=== PATIENT | female | born 1930 | race Caucasian/White ===

== ENCOUNTER 2017-08-16 21:23 | Inpatient (IN) | payer OTHER, MEDICARE ==
[~2017-08-16] VITALS: Ht 154.9 cm; Wt 68.1 kg
[~2017-08-16 21:23] MED LIST: ASCORBIC ACID500 M3 PO; ASPIR 8181 M1 PO; ASPIRIN325 MG PO; ATORVASTATIN CA40 MG PO; ATROPINE 1100 DROP/5 LEFT EYE; B COMPLETE1 EACH PO; BIOTIN1000 MCG PO; CELEXA10 MG PO; CITALOPRAM HBR10 MG PO; COLACE100 MG PO; COSOPT EYE DROPS5 ML LEFT EYE; COZAAR50 MG PO; CYANOCOBALAM1000 MCG PO; Cordarone, Pacerone PO; DONNATAL1 ML PO; DULCOLAX10 MG PR; ELIQUIS5 MG PO; ENOXAPARIN30 MG/0.3 SC; ESCITALOPRAM OX10 MG PO; ESCITALOPRAM OXA5 MG PO; EXCEDRIN EXTRA1 EACH PO; FOLIC ACID1 MG PO; FUROSEMIDE20 MG PO; FUROSEMIDE40 MG PO; HYDROCODON-ACE1 EAC7 PO; LASIX40 MG PO; LIPITOR40 MG PO; LISINOPRIL2.5 MG PO; LO-DOSE ASPIRIN81 M2 PO; LOPRESSOR50 MG PO; LORTAB 5-325 M1 EACH PO; METAMUCIL PACKE1 PKT PO; METAMUCIL POWD822 G1 PO; METOPROLOL SUCC50 MG PO; METOPROLOL TART25 MG PO; MILK OF MAGN PO; MIRALAX255 GM PO; MULTI-DAY VITA1 EACH PO; MYLICON,MYLANTA80 MG PO; NEURONTIN100 MG PO; NOVOLOG100 UNIT/1 SC; OMEPRAZOLE40 M1 PO; OXYBUTYNIN CHLOR5 M1 PO; PANTOPRAZOLE SO40 MG PO; PLAVIX75 MG PO; POLYETHYLENE GL17 GM PO; POTASSIUM CHLO20 ME1 PO; PRED FORTE100 DROP/5 LEFT EYE; PREDNISOLONE AC15 ML LEFT EYE; PROTONIX40 MG PO; ROXICODONE5 MG PO; SENNA-TIME S T1 EACH PO; SENOKOT,SENN1 TABLET PO; TOPROL XL50 MG PO; TUMS500 MG PO; TYLENOL ARTHRI650 MG PO; VESICARE5 MG PO; VIGAMOX 0.60 DROP/3 LEFT EYE; VITAMIN B-122000 MC1 PO; VITAMIN B12 100MCG PO; VITAMIN D1000 UNIT PO; VITAMIN D31000 UNIT PO; VITAMIN D400 UNIT PO; WELCHOL3.75 GM PO; WELCHOL625 MG PO
[2017-08-17 05:55] VITALS: BP 103/55
[2017-08-17 16:25] VITALS: BP 108/54
[2017-08-18 00:01] VITALS: BP 103/51
[2017-08-18 03:48] VITALS: BP 96/51
[2017-08-18 04:56] LABS: HEMATOCRIT 28.2 % (36.0-46.0); MCH 31.2 PG (29.0-34.0); MCHC 33.3 G/DL (30.0-36.0); MCV 93.7 FL (83-99); RBC DIS.WIDTH-CV 12.4 % (11.8-14.6); RBC DIS.WIDTH-SD 42.7 % (39-53); WHITE BLOOD COUNT 11.6 K/uL (4.1-10.2)
[2017-08-18 05:01] LABS: HEMOGLOBIN 9.4 G/DL (11.9-15.5); PLATELET COUNT 184 K/uL (156-360); RED BLOOD COUNT 3.01 M/uL (3.80-5.20)
[2017-08-18 08:11] VITALS: BP 107/57
[2017-08-18 12:27] VITALS: BP 127/63
[2017-08-18 16:52] VITALS: BP 126/70
[2017-08-18 19:55] VITALS: BP 112/56
[2017-08-19 00:49] VITALS: BP 106/53
[2017-08-19 08:21] VITALS: BP 115/78
[2017-08-19 15:51] VITALS: BP 117/69
[2017-08-19 23:55] VITALS: BP 103/53
[2017-08-20 08:13] VITALS: BP 97/51
[2017-08-20 15:51] VITALS: BP 118/57
== END 2017-08-20 18:10 | DRG 460 ==
LOC: ENRESERV 21:23 → 2SOUTH 08-17 05:07 → 3EAST 08-17 05:07 → 2SOUTH 08-17 09:02 → ENRESERV 08-17 09:25 → 2SOUTH 08-17 09:36 → ENRESERV 08-17 14:27 → 3EAST 08-17 15:43
PROVIDERS: Neurological Surgery
DX: M43.17 Spondylolisthesis, lumbosacral region (principal); M53.2X6 Spinal instabilities, lumbar region; M48.061 Spinal stenosis, lumbar region without neurogenic claudication; M81.0 Age-related osteoporosis without current pathological fracture; Z68.28 Body mass index [BMI] 28.0-28.9, adult; Z95.5 Presence of coronary angioplasty implant and graft; F32.9 Major depressive disorder, single episode, unspecified; M79.7 Fibromyalgia; G89.29 Other chronic pain; M19.90 Unspecified osteoarthritis, unspecified site
CPT/HCPCS: 71046; 72100; 76000; 82948; 85027; 86850; 86900; 86901; 94799; 97530 GO; J0330; J1580; J2405; J2710; J3010; J3370; J3480